=== PATIENT | female | born 1970 | race American Indian/Alaskan Native ===

== ENCOUNTER 2016-09-27 07:03 | Day surgery (SDC) | payer OTHER ==
[2016-09-27] MEDS ORDERED: NACL 0.9% 500 ML 500 ML ONE (07:25)
[2016-09-27] MEDS ORDERED: ECOTRIN PO ONE ×2 (07:25→07:28)
[2016-09-27 07:49] LABS: Hematocrit 39.3 % (30.3-42.9); Hemoglobin 12.6 gm/dl (10.1-14.3); Mean Corpuscular HGB Conc 32 % (30-34); Mean Corpuscular Hemoglobin 27 pg (28-32); Mean Corpuscular Volume 85 fl (79-97); Platelet Count 224 K/mm3 (140-440); Red Blood Count 4.62 M/mm3 (3.65-5.03)
[2016-09-27] MEDS ORDERED: HEPARIN/NS 5000 UNIT/500ML(CATH LAB) 1,000 ML IR ONE (07:51)
[2016-09-27] MEDS ORDERED: XYLOCAINE 2% INFILTRATI ONE ×2 (07:51→08:22)
[2016-09-27 07:59] LABS: INR 1.02 (0.87-1.13)
[2016-09-27] MEDS ORDERED: NACL 0.9% 500 ML 500 ML IV SCH (08:00)
[2016-09-27] MEDS ORDERED: NITROGLYCERIN SYRINGE 3 ML ONE (08:22)
[2016-09-27] MEDS ORDERED: HEPARIN 10,000 UNITS/10 ML ONE (08:22)
[2016-09-27] MEDS ORDERED: CALAN ONE (08:22)
[2016-09-27] MEDS ORDERED: VERSED ONE (08:23)
[2016-09-27] MEDS: SUBLIMAZE ONE ×2 (08:34→09:01)
[2016-09-27 08:35] LABS: Anion Gap 15 mmol/L; Blood Urea Nitrogen 9 mg/dL (7-17); Calcium 8.5 mg/dL (8.4-10.2); Carbon Dioxide 25 mmol/L (22-30); Chloride 104.6 mmol/L (98-107); Glucose 102 mg/dL (65-100); Potassium 4.2 mmol/L (3.6-5.0); Sodium 140 mmol/L (137-145)
[2016-09-27] MEDS ORDERED: ULTRAM PO PRN (09:46)
--- NOTE | 2016-09-27 09:50 | Discharge Summary ---
Short Stay Discharge Plan Activity: other (NO DRIVING FOR 48HRS) Diet: low fat, low cholesterol, low salt Special Instructions: no heavy lifting, other (POST CARDIAC CATH INSTRUCTIONS) Follow up with: LUCINA JAMISON MD [Primary Care Provider] - 7 Days
[2016-09-27 11:53] VITALS: BP 113/61
--- NOTE | 2016-10-11 05:28 | Cardiac Catherization Report ---
HISTORY OF PRESENT ILLNESS: The patient is a 45-year-old female with symptoms consistent with angina. She underwent a stress thallium study that was abnormal, so coronary angiography was recommended. PROCEDURE: Left heart catheterization, ventriculography and coronary angiography via the right radial artery using 5-Korean catheters including a pigtail, 3.5 left Kevin and AR1. COMPLICATIONS: None. SEDATION: Intravenous Versed and fentanyl. TISSUE SAMPLE: None. PREPROCEDURE DIAGNOSIS: Coronary artery disease. POSTPROCEDURE DIAGNOSIS: Minimal coronary artery disease. ESTIMATED BLOOD LOSS: 10-20 mL. HEMODYNAMICS: Central aortic pressure 147/95. Left ventricular pressure 127/26. ANGIOGRAPHIC RESULT: 1. Left ventricle: The ventriculogram revealed mild left ventricular enlargement with normal systolic function. Ejection fraction is approximately 55%. 2. Left coronary artery: Mild intimal irregularities. 3. Right coronary artery: This is a dominant vessel and mild intimal irregularities. There appeared to be a 50% stenosis in 1 view of the right coronary ostium that is probably coronary spasm. FINAL IMPRESSION: Angina. There are no significant coronary lesions and the left ventricular function is normal. Consider other organ systems. Consider possibly the coronary spasm. The patient will be discharged with the recommendation to follow up in the office within 1 week. Follow up recommended with medical therapy and coronary artery disease risk factor modification. Consider GI workup on an outpatient basis. JOB# [id number] TUNDE/LORI
== END 2016-09-27 12:05 | disposition home or self-care (01) ==
LOC: OPU 07:03
PROVIDERS: ATTEND Internal Medicine
DX: I25.119 Atherosclerotic heart disease of native coronary artery with unspecified angina pectoris (principal); G47.33 Obstructive sleep apnea (adult) (pediatric); E66.01 Morbid (severe) obesity due to excess calories; Z68.43 Body mass index [BMI] 50.0-59.9, adult; Z79.899 Other long term (current) drug therapy; Z87.19 Personal history of other diseases of the digestive system; Z82.49 Family history of ischemic heart disease and other diseases of the circulatory system
CPT/HCPCS: 36415; 80048; 85027; 85610; 85730; 93005; 93010; 93458; C1894; J1644; J2250; J3010; J7040; Q9967